=== PATIENT | female | born 1995 | race Caucasian/White ===

== ENCOUNTER 2021-11-30 16:35 | Emergency (ER) | payer OTHER, SELFPAY ==
[2021-11-30 16:42] VITALS: BP 111/69; PULSE 101; RESP 16; TEMP 37.1; O2SAT 98
--- NOTE | 2021-11-30 17:02 | ED.GENADUL_ITS ---
Discharge Plan Disposition Patient Disposition: HOME Condition: Improving Discharge Details Clinical Impression: Pneumonia, Sinusitis Primary Care Provider: Unknown,Unknown ED Provider: Kath Morgan Home Meds and New Rx's Prescriptions: New amoxicillin-pot clavulanate 875-125 mg tablet 1 tab PO BID 10 Days Qty: 20 0RF Discharge Instructions Instructions: Sinusitis (ED), Pneumonia (ED) Additional Instructions: Your chest x-ray appears consistent with a right-sided pneumonia. You will be notified if there are any additional findings from the radiologist once the xray report is complete. You also likely have a sinus infection. These can be viral which is treated with supportive care such as fluids, rest and [id number]-ejannvu cough and cold medication, but can also evolve into a bacterial infection which is treated with antibiotics. Drink plenty of fluids and get plenty of rest. You are being sent home with an albuterol inhaler to use as needed and directed for coughing, wheezing or shortness of breath. A prescription for antibiotics has been sent electronically to [facility] in [facility]. Follow-up with your primary care doctor in [place] in the next 1 to 2 weeks. If you decide to stay or move to the area, some local practices include [facility] internal medicine, [facility] and [facility]. Return to the emergency department with any worsening or new concerning symptoms such as worsening headache, neck pain, difficulty breathing. Stand Alone Forms: Work Release Discharge Data Discharge Date/Time-TO BE ENTERED AT DEPARTURE: 11/30/21 18:23 Discharge Physician: Kath Morgan Medical Decision Making 1650 -- 26-year-old female who is a daily tobacco smoker and occasional marijuana smoker presents for 1 week of nasal congestion, green nasal discharge, sore throat, ear pain, cough productive of green sputum, shortness of breath, right-sided headache and right-sided rib pain. Heart rate 101. Her oxygen saturation is 98% on room air. She has diminished breath sounds in the bases bilaterally but with crackles in the right lung base. She has right frontal sinus tenderness. Normal oropharynx. No wheezing noted. Differential diagnosis includes sinusitis, pneumonia, COVID or other respiratory viral illness. Will obtain a chest x-ray, COVID antigen test and give a DuMaxinebCriselda. 1750 --patient reassessed and she feels much better. COVID and flu antigen test negative. Chest x-ray reveals a right-sided pneumonia. Patient feels comfortable going home. Patient is visiting from [place]. We will send with albuterol inhaler and give dose of antibiotics now. On lung reassessment there is no wheezing noted so we will hold on steroids at this time. Prescription for antibiotics sent electronically to [facility] pharmacy. Advised to follow-up with the PCP in [place] within the next 1 to 2 weeks. Usual and customary return precautions given prior to discharge. Medical Records Medical records reviewed: Yes I reviewed the patient's medical records. Imaging Data Radiologic Study: Radiologist's impression: XR Chest Exam date and time: 11/30/2021 5:16 PM Age: 26 years old Clinical indication: Other: Cough, SOB, R/O acute disease TECHNIQUE: Imaging protocol: Radiologic exam of the chest. Views: 1 view. COMPARISON: CR XR PORTABLE CHEST AP 11/30/2021 5:06 PM FINDINGS: Lungs: Normal pulmonary expansion. Pulmonary vasculature grossly normal. Alveolar opacity in the right lung base suggesting right lower lobe pneumonia. Pleural spaces: No pleural effusion. No pneumothorax. Heart/Mediastinum: Heart size normal. No tracheal/mediastinal shift. Bones/joints: No acute osseous abnormalities are identified. Soft tissues: Nipple adornments removed. IMPRESSION: Right lower lobe airspace disease consistent with pneumonia.. Lab Data Lab results reviewed: Yes I reviewed the patient's lab results. HPI General Mode of arrival: ambulatory . Date/Time Provider Initiated Documentation: 11/30/21 16:49 . Limitations to Documentation: no limitations . Information obtained by: patient . HPI Narrative: Patient is a 26-year-old female who presents with 1 week of sore throat, ear pain, runny nose, nasal congestion, productive cough, shortness of breath now with right-sided headache and right-sided chest pain. Patient states she has had a max temperature of 99. She states she has been having green nasal mucus and green sputum. She states her right-sided chest hurts mainly with coughing. She has been taking Sudafed and ibuprofen. She states she has received 2 COVID vaccines but no boosters. Related Data Home Medications Medication Instructions Recorded Confirmed amoxicillin 875 mg-potassium 1 tab PO BID 10 days #20 tabs 11/30/21 clavulanate 125 mg tablet Previous Rx's Medication Instructions Recorded amoxicillin 875 mg-potassium 1 tab PO BID 10 days #20 tabs 11/30/21 clavulanate 125 mg tablet Allergies Allergy/AdvReac Type Severity Reaction Status Date / Time No Known Allergies Allergy Unverified 11/30/21 16:48 General Stated Complaint: GenMedical RICO: 3 Review of Systems All systems reviewed & are unremarkable except as noted in HPI and below Constitutional Constitutional: Reports as per HPI, Denies chills and Denies fever(s) Eyes Eyes: Denies blurry vision ENT Ears, Nose, Mouth, and Throat: Denies dizziness, Reports otalgia, Reports sore throat and Denies throat swelling Cardiovascular Cardiovascular: Denies chest pain and Reports dyspnea Respiratory Respiratory: Reports chest congestion, Reports cough and Reports dyspnea Gastrointestinal Gastrointestinal: Denies abdominal pain, Denies diarrhea and Denies vomiting Genitourinary Genitourinary: Denies hematuria and Denies dysuria Musculoskeletal Musculoskeletal: Denies back pain and Denies numbness Integumentary/Breasts Skin/Breast: Denies lesions and Denies rash Neurologic Neurologic: Denies dizziness, Denies localized weakness and Denies numbness Allergic/Immunologic Allergic/Immunologic: Denies throat swelling PFSH All Active Problems (Updated 11/30/21 @ 17:57 by Kath Morgan DO) Pneumonia (Acute) Sinusitis (Acute) Medical History (Updated 11/30/21 @ 17:57 by Kath Morgan DO) No significant past medical history Surgical History (Updated 11/30/21 @ 17:04 by Kath Morgan DO) H/O wisdom tooth extraction Social History Smoking/Tobacco Use Status: Current every day Tobacco Type: cigarettes Smoking risk assessment performed?: Yes Alcohol Intake: current Alcohol Intake frequency: a few times a month Alcohol type: beer, wine and hard liquor Drug use: Daily Substance use type: marijuana Do you feel safe at home: Yes Do you feel safe in your relationship?: Yes Exam Const General: cooperative, healthy appearing and no acute distress HENMT Head: normal to inspection Ears: hearing grossly normal bilaterally, external ears normal and TM's normal bilaterally Face and sinus: normal facial exam and sinus tenderness frontal (right) Mouth: oral mucosae normal Throat: posterior oropharynx normal Eyes General: appearance normal, both eyes and all related structures Pupils: PERRL EOM: EOM intact bilaterally Neck Neck: normal visual inspection and No submandibular swelling Lymphatic: no lymphadenopathy noted Chest Chest: normal inspection of the chest and no tenderness Resp Effort & Inspection: normal respiratory effort and able to speak in complete sentences Auscultation: crackles on the right at the base and diminished lung sounds bilaterally in the lower lung gregory Cardio Rate: regular rate Rhythm: regular rhythm GI Inspection: normal to inspection Palpation: soft, not firm, not rigid and nontender Auscultation: hypoactive bowel sounds Skin General skin exam: no rashes or lesions noted Neuro General: patient alert, patient awake and patient oriented x3 Cognition: normal cognition Speech: speech normal Motor: muscle tone normal throughout Sensory Exam: no sensory deficits noted Extrem General: normal to inspection, full ROM, capillary refill normal, no calf tenderness bilaterally and no edema Psych Appearance: grossly normal Mental Status: mental status grossly normal Speech and Movement: speech and movement normal Affect: normal affect Course Vital Signs Vital signs: Vital Signs Temperature 98.7 F 11/30/21 16:42 Pulse 101 H 11/30/21 16:42 Respiratory Rate 16 11/30/21 16:42 Blood Pressure 111/69 11/30/21 16:42 Pulse Oximetry 98 11/30/21 16:42 Temperature 98.7 F 11/30/21 16:42 Temperature Source Oral 11/30/21 16:42 Pulse 101 H 11/30/21 16:42 Respiratory Rate 16 11/30/21 16:42 Respiratory Effort 11/30/21 16:56 Respiratory Depth Normal 11/30/21 16:56 Respiratory Pattern Normal 11/30/21 16:56 Blood Pressure 111/69 11/30/21 16:42 Blood Pressure Position Sitting 11/30/21 16:42 Pulse Oximetry 98 11/30/21 16:42 Oxygen Delivery Method Room Air 11/30/21 16:42 Oxygen Flow Rate 0 11/30/21 16:42 Pain Level 5 11/30/21 16:42 PAWSS Have you Been Recently Intoxicated or Drunk Within the Last 30 days?: No Have you Ever Experienced Previous Episodes of Alcohol Withdrawal?: No Have you ever Experienced Withdrawal Seizures?: No Have you ever Experienced Delirium Tremens(DT)s?: No Have you ever undergone Alcohol Rehabilitation Treatment (i.e, inpt ot outpatient treatment programs)?: No Have you ever Experienced Blackouts?: No Have you ever Combined Alcohol with other Downers within the last 90 days?: No Have you ever Combined Alcohol with any other Substance of Abuse during the last 90 days?: No Positive Blood Alcohol level on Presentation? [PCS.BAL]: No Evidence of Increased Autonomic Activity (i.e. HR>120, tremor, sweating, agitation, nausea)?: No Result: 0
--- NOTE | 2021-11-30 17:15 | DI.RAD_ITS ---
Exam(s) XR PORTABLE CHEST AP EXAM: XR PORTABLE CHEST AP CLINICAL HISTORY: cough, r/o acute disease TECHNIQUE: COMPARISON: No exams were available for comparison FINDINGS: Heart is not enlarged. The there are patchy infiltrates in the right lung base consistent with acute pneumonitis period otherwise lungs are clear. No pneumothorax. No pleural effusion on this frontal film. IMPRESSION: The appearance is consistent with right basilar pneumonia. Appropriate follow-up films requested. RADIATION DOSE DELIVERED: Total DLP
[2021-11-30] MEDS: Ibuprofen 600 MG TAB PO (17:51)
[2021-11-30] MEDS: Albuterol/Ipratropium 3 ML UPD VIAL UPD (17:51)
--- NOTE | 2021-11-30 18:16 | DI.VRAD_ITS ---
PROCEDURE INFORMATION: Exam: XR Chest Exam date and time: 11/30/2021 5:16 PM Age: 26 years old Clinical indication: Other: Cough, SOB, R/O acute disease TECHNIQUE: Imaging protocol: Radiologic exam of the chest. Views: 1 view. COMPARISON: CR XR PORTABLE CHEST AP 11/30/2021 5:06 PM FINDINGS: Lungs: Normal pulmonary expansion. Pulmonary vasculature grossly normal. Alveolar opacity in the right lung base suggesting right lower lobe pneumonia. Pleural spaces: No pleural effusion. No pneumothorax. Heart/Mediastinum: Heart size normal. No tracheal/mediastinal shift. Bones/joints: No acute osseous abnormalities are identified. Soft tissues: Nipple adornments removed. IMPRESSION: Right lower lobe airspace disease consistent with pneumonia.. Dictated and Authenticated by: Abilio Childs MD. Ordering:JOANA Stockton MD
[2021-11-30] MEDS: Albuterol HFA 8 GM 60 PUFF INH IH (18:22)
[2021-11-30] MEDS: Inhaler, Assist Device 1 EACH MC (18:23)
[2021-11-30] MEDS: Amox. 875/Clav. 125, 2 TABS/BTL 1 TAB PO (18:23)
== END 2021-11-30 18:23 | disposition home or self-care (01) ==
PROVIDERS: Emergency Provider Physician Assistant
DX: J18.9 Pneumonia, unspecified organism (principal); J32.9 Chronic sinusitis, unspecified; F17.210 Nicotine dependence, cigarettes, uncomplicated; Z20.822 Contact with and (suspected) exposure to COVID-19
CPT/HCPCS: 81025; 99283; 71045; 99284; J7620

== ENCOUNTER 2022-05-17 15:02 | Outpatient (REF) | payer MEDICAID, SELFPAY ==
[2022-05-19 13:08] LABS: Chlamydia Result Negative (Negative); GC Result Negative (Negative)
== END 2022-05-17 15:03 | disposition home or self-care (01) ==
LOC: LBN 15:02
PROVIDERS: Visit Provider Nurse Practitioner Women's Health
DX: Z11.3 Encounter for screening for infections with a predominantly sexual mode of transmission (principal)
CPT/HCPCS: 87491; 87591

== ENCOUNTER 2022-07-06 21:50 | Emergency (ER) | payer MEDICAID, SELFPAY ==
[2022-07-06] VITALS (26 sets, daily range): BP systolic 72–131; BP diastolic 42–88; PULSE 45–158; RESP 0–32; O2SAT 99–100
[2022-07-06] MEDS: Atropine 1 MG/10 ML SYRINGE IVP (21:50)
[2022-07-06] MEDS: Rocuronium 50 MG/5 ML SYR 100 MG IVP ×2 (21:55→23:34)
[2022-07-06] MEDS: Etomidate 20 MG/10 ML VIAL IVP (21:55)
[2022-07-06] MEDS: Normal Saline 1,000 ML 1000 ML IV (22:00)
[2022-07-06] MEDS: PROPOFOL 1,000 MG/100 ML BTL 7.5 MG IV (22:00)
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
[2022-07-06 22:08] LABS: Abs Immature Grans 0.09 10^3/uL (0.0-0.06); Absolute Basophil Count 0.03 10^3/uL (0.0-0.2); Absolute Eosinophil Count 0.15 10^3/uL (0.0-0.7); Absolute Lymphocyte Count 3.91 10^3/uL (1.2-3.4); Absolute Monocyte Count 0.64 10^3/uL (0.1-0.8); Basophils % 0.2; HGB 11.9 g/dL (11.2-15.7); Immature Grans % 0.6; Lymphocytes % 25.5; MCH 31.7 pg (27.0-33.0); MCHC 33.1 % (32.0-36.0); MCV 96 fL (80-95); MPV 10.2 fL (8.0-11.0); Monocytes % 4.2; Neutrophils % 68.5; Platelet Count 236 10^3/uL (130-400); RBC 3.75 10^6/uL (3.93-5.22); RDW-SD 45.9 fL; WBC 15.33 10^3/uL (4.4-10.8)
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
[2022-07-06 22:25] LABS: PTT Activated 20.1 sec (21.5-31.9); Prothrombin Time 10.6 sec (9.3-11.0)
[2022-07-06 22:29] LABS: ALT 25 U/L (14-59); AST 38 U/L (15-37); Albumin 3.4 g/dL (3.4-5.0); Alkaline Phosphatase 51 U/L (46-116); Anion Gap 5.3 mmol/L (3-11); BUN 15 mg/dL (7-18); Bilirubin, Total 0.3 mg/dL (0.2-1.0); CO2 28.7 mmol/L (21.0-32.0); CREATININE 0.8 mg/dL (0.55-1.02); Calcium 8.4 mg/dL (8.5-10.1); Chloride 108 mmol/L (98-107); Estimated GFR 107.44 (mL/min/1.73m2); Glucose 168 mg/dL (74-106); Magnesium 1.4 mg/dL (1.8-2.4); Potassium 3.7 mmol/L (3.5-5.1); Sodium 142 mmol/L (136-145); Total Protein 6.1 g/dL (6.4-8.2)
[2022-07-06] MEDS: Omnipaque 350 MG/ML 100 ML BTL IJ (22:31)
[2022-07-06] MEDS: Normal Saline - Diluent 50 ML VIAL IJ (22:31)
[2022-07-06] MEDS: Normal Saline Flush 10 ML SYR IVP (22:32)
[2022-07-06 22:33] LABS: Troponin I < 50 ng/L (<or=60)
[2022-07-06] MEDS: Tranexamic Acid 1,000 MG/10 ML VIAL 1000 MG IVP (22:39)
[2022-07-06] MEDS: ceFAZolin 2,000 MG in Normal Saline 100 ML 200 MG IVPB (22:45)
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
[2022-07-06 22:50] LABS: ETHANOL BLOOD 4.7 mg/dL (<10)
[2022-07-06 22:53] LABS: HCG Quant, Pregnancy < 1 mIU/mL (1-3)
[2022-07-06] MEDS: Propofol 200 MG/20 ML VIAL 20 MG IVP (22:55)
[2022-07-06] MEDS: levETIRAcetam 500 MG/5 ML VIAL (22:55)
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
[2022-07-06] MEDS: Lactated Ringers 1,000 ML 1000 ML IV (23:12)
[2022-07-06] MEDS: SODIUM CHLORIDE 3% 500 ML 30 ML IV (23:14)
[2022-07-06] MEDS: fentaNYL 1,000 MCG in Normal Saline 80 ML 10 MCG IV (23:35)
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
[2022-07-06 23:40] LABS: Bilirubin Negative (Negative); Blood Small (Negative); Clarity Sl Cloudy (Clear); Glucose Negative (Negative); Ketones Negative (Negative); Leukocyte Esterase Trace (Negative); Nitrite Negative (Negative); Urobilinogen 0.2 mg/dL (Up to 0.2)
[2022-07-06 23:43] LABS: Bacteria Few HPF (Negative); C & S Indicated? No/Sq. Contamination; Casts Negative LPF (Negative); Crystals Negative HPF (Negative); Epithelial Cells Many HPF (Negative); Mucus Negative (Negative)
--- NOTE | 2022-07-07 00:14 | NUR.NOTE ---
Nursing Note:[address], increased bleeding noted from head wound and nares; 222, 1st unit blood [id number], 2235 Dr. Lai at bedside to place 7.0fr triple lumen central line in left groin without difficulty; wound care to head provided. severe deformity and bleeding controlled. 2240 TXA administered via central line; patient starting to arouse and move; nonvoilent soft wrist restraints applied for patient/tube safety. propofol titrated up with additional push of 20 mg given per Ming cabrera; kereid initated; 2310 16 fr indwelling urinary catheter inserted and urine obtained and sent. 2320; EMS present - report given, pt transferred [facility] and patient departed with 1 EMT, 1 Hydrology Teacher, 1 RN and 1 RT
[2022-07-07 00:31] LABS: *AMPHETAMINES SCREEN URINE Negative (Negative); *BARBITURATES SCREEN URINE Negative (Negative); *BENZODIAZEPINES SCREEN URINE Negative (Negative); Cannabinoids THC Positive (Negative); Cocaine Screen,Urine Negative (Negative); METHADONE URINE SCREEN Negative (Negative); OPIATES URINE SCREEN Negative (Negative)
[2022-07-07 00:33] LABS: Tricyclic Antidepressants Negative (Negative)
--- NOTE | 2022-07-07 00:43 | NUR.NOTE ---
Nursing Note: 3 units emergent blood infused during patient stay - unable to obtain emergent blood transfusion record to document. First unit [id number] initiated at 2225; [id number] initiated at 2254; 3rd unit initiated at 2320
[2022-07-07 01:30] VITALS: RESP 10; RESP 15; O2SAT 99
== END 2022-07-06 23:59 | disposition short-term general hospital (02) ==
PROVIDERS: Physician Assistant; Emergency Provider Student in an Organized Health Care Education/Training Program
DX: S02.413A LeFort III fracture, initial encounter for closed fracture (principal); S12.600A Unspecified displaced fracture of seventh cervical vertebra, initial encounter for closed fracture; S22.43XA Multiple fractures of ribs, bilateral, initial encounter for closed fracture; V89.2XXA Person injured in unspecified motor-vehicle accident, traffic, initial encounter; S01.01XA Laceration without foreign body of scalp, initial encounter
CPT/HCPCS: 31500; 36430; 36556; 74177; 76937; 80053; 80307; 81025; 82805; 86850; 86900; 86901; 86920; 90471; 96365; 96367; 96375; 99291; 99292; 70450; 70486; 71260; 72125; 80320; 81003; 81015; 83735; 84484; 84702; 85025; 85610; 85730; J0690; J1953; J2704; J3010; J3490; P9016

== ENCOUNTER 2023-11-07 12:01 | Outpatient (REF) | payer MEDICAID, SELFPAY ==
--- NOTE | 2023-11-07 11:10 | PAPFT_PTH ---
PATIENT: Indira Bahena LOC: [facility] U#:[id number] AGE/SX: 28/F ROOM: RE11/07/[address]: Migdalia Shore NP : 1995 BED: DIS: 11/07/2023 SPEC #: [id number] RECD: 11/07/23 13:01 STATUS: DELIA SHIRLEY #: [id number] ESTEBAN: 11/07/23 11:[address]: Migdalia Shore NP DEPT: [facility] Cytology RECD BY: Rachelle Ernst ENTERED: 11/07/23 13:02 SP TYPE: PAPFT JOAO DR: Unknown,Unknown Tissues: 1 - CX/ENDOCX FOR PAP SMEARS Procedures: PAP THIN PREP/[facility] Screening Comments: [id number]
== END 2023-11-07 12:02 | disposition home or self-care (01) ==
LOC: LBN 12:01
PROVIDERS: Visit Provider Nurse Practitioner Women's Health
DX: Z01.419 Encounter for gynecological examination (general) (routine) without abnormal findings (principal); Z12.4 Encounter for screening for malignant neoplasm of cervix
CPT/HCPCS: 88142

== ENCOUNTER 2024-02-10 08:31 | Emergency (ER) | payer MEDICAID, SELFPAY ==
[2024-02-10 08:54] VITALS: BP 103/50; PULSE 68; RESP 16; TEMP 36.6; O2SAT 98
[2024-02-10 08:58] VITALS: BP 103/50; PULSE 68; RESP 16; TEMP 36.6; O2SAT 98
--- NOTE | 2024-02-10 09:45 | DI.CT_ITS ---
Exam(s) CT BRAIN NECK CTA EXAM: CT BRAIN NECK CTA CLINICAL HISTORY: headache, prior tbi. TECHNIQUE: Imaging Protocol: Axial CT angiography was performed with multi-slice acquisition and mu lti-planar and MIP reconstructions. CONTRAST MATERIAL: Intravenous: Omnipaque 350 Contrast volume:70 ml COMPARISON: CT CT HEAD CERV SPINE FACIAL WO from 07/06/2022 FINDINGS: CT Head W/O and W contrast: The exam is limited by motion, particularly on the noncontrast images.. Ventricles and Extra axial spaces: Normal in size and morphology for the patient's age. Hemorrhage: None. Cerebral parenchyma: No evidence of acute infarct or mass. Midline shift: None. Brainstem/Cerebellum: No acute findings.. Calvarium: Normal. Visualized Paranasal sinuses/Mastoids: Clear. Old facial fractures. Soft Tissues: Unremarkable. Enhancement: Normal. CTA Brain W: Internal Carotid Arteries: Petrous: Normal. Cavernous: Normal. Cerebral: Normal. Middle Cerebral Arteries: Right: No aneurysm, occlusion or significant stenosis. Left: No aneurysm, occlusion or significant stenosis. Anterior Cerebral Arteries: Right: No aneurysm, occlusion or significant stenosis. Left: No aneurysm, occlusion or significant stenosis. Posterior cerebral Arteries: Right: No aneurysm, occlusion or significant stenosis. Left: No aneurysm, occlusion or significant stenosis. Vertebral Arteries: Right: No aneurysm, occlusion or significant stenosis. Left: No aneurysm, occlusion or significant stenosis. Basilar Artery: No aneurysm, occlusion or significant stenosis. CTA Neck W: Common Carotid: Right: No dissection, occlusion or significant stenosis. Left: No dissection, occlusion or significant stenosis. External Carotid: Right: No dissection, occlusion or significant stenosis. Left: No dissection, occlusion or significant stenosis. Internal Carotid: Right: No dissection, occlusion or significant stenosis. Left: No dissection, occlusion or significant stenosis. Vertebral Artery: Right: No dissection, occlusion or significant stenosis. Left: No dissection, occlusion or significant stenosis. Lung Apices: No acute findings. Bones: No acute abnormality. Healing without significant residual deformity of the previously noted C 7 fractures. Soft Tissues: Normal. IMPRESSION: 1. CTA brain: Normal CTA examination of the [place]. 2. Head CT: Unremarkable CT Head. 3. CTA neck: Normal CTA examination of the neck. RADIATION DOSE DELIVERED: Total DLP DATA REPOSITORY: All CT scans at this facility are submitted to the National Radiology Data Registry (NRDR) Dose Index Registry (DIR) with the [employer] ([employer]). RADIATION OPTIMIZATION: All CT scans at this facility use at least one of these dose optimization te chniques: automated exposure control; mA and/or kV adjustment per patient size (includes targeted exa ms where dose is matched to clinical indication); or iterative reconstruction.
[2024-02-10 10:26] LABS: Abs Immature Grans 0.01 10^3/uL (0.0-0.06); Absolute Basophil Count 0.02 10^3/uL (0.0-0.2); Absolute Eosinophil Count 0.16 10^3/uL (0.0-0.7); Absolute Lymphocyte Count 2.13 10^3/uL (1.2-3.4); Absolute Monocyte Count 0.58 10^3/uL (0.1-0.8); Absolute Neutrophil Count 2.45 10^3/uL (1.2-6.7); Basophils % 0.4 %; HCT 41.8 % (36.0-46.0); Immature Grans % 0.2 %; Lymphocytes % 39.8 %; MCHC 33.5 % (32.0-36.0); MCV 93 fL (80-95); MPV 10.3 fL (8.0-11.0); Monocytes % 10.8 %; Neutrophils % 45.8 %; Platelet Count 153 10^3/uL (130-400); RBC 4.51 10^6/uL (3.93-5.22); RDW 12.9 % (11.7-14.6); WBC 5.35 10^3/uL (4.4-10.8)
[2024-02-10] MEDS: Prochlorperazine 10 MG/2 ML VIAL IVP (10:26)
[2024-02-10] MEDS: diphenhydrAMINE 50 MG/ML VIAL 25 MG IVP (10:26)
[2024-02-10] MEDS: Acetaminophen 325 MG TAB 650 MG PO (10:26)
[2024-02-10] MEDS: Normal Saline - Diluent 50 ML VIAL IJ (10:39)
[2024-02-10] MEDS: Omnipaque 350 MG/ML 100 ML BTL 70 ML IJ (10:40)
[2024-02-10 10:41] LABS: ALT 24 U/L (14-59); AST 29 U/L (15-37); Albumin 3.8 g/dL (3.4-5.0); Alkaline Phosphatase 66 U/L (46-116); Anion Gap 8.2 mmol/L (3-11); BUN 13 mg/dL (7-18); Bilirubin, Total 0.22 mg/dL (0.2-1.0); CO2 26.8 mmol/L (21.0-32.0); CREATININE 0.8 mg/dL (0.55-1.02); Calcium 9.2 mg/dL (8.5-10.1); Chloride 106 mmol/L (98-107); Glucose 105 mg/dL (74-106); Potassium 4.3 mmol/L (3.5-5.1); Sodium 141 mmol/L (136-145); Total Protein 7.7 g/dL (6.4-8.2)
[2024-02-10 11:35] VITALS: BP 108/73; PULSE 59; RESP 15; O2SAT 97
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
== END 2024-02-10 12:20 | disposition home or self-care (01) ==
PROVIDERS: Emergency Provider Student in an Organized Health Care Education/Training Program
DX: R51.9 Headache, unspecified (principal); R11.0 Nausea; R19.7 Diarrhea, unspecified; F17.210 Nicotine dependence, cigarettes, uncomplicated; Z87.820 Personal history of traumatic brain injury
CPT/HCPCS: 36415; 70496; 70498; 80053; 81025; 96374; 96375; 99285; 85025; J0780; J1200; J3490

== ENCOUNTER 2024-11-10 07:25 | Outpatient (CLI) | payer MEDICAID, SELFPAY ==
[2024-11-10 23:27] LABS: HIV-1/2 Ag & Ab Screen Negative (Negative)
[2024-11-12 15:42] LABS: Syphilis IgG w/Reflex Nonreactive (Nonreactive)
== END 2024-11-10 07:26 | disposition home or self-care (01) ==
LOC: LBO 11-11 07:26
PROVIDERS: PCP Family Medicine; Visit Provider Nurse Practitioner Women's Health
DX: Z11.3 Encounter for screening for infections with a predominantly sexual mode of transmission (principal); Z20.5 Contact with and (suspected) exposure to viral hepatitis
CPT/HCPCS: 36415; 87389; 87522; 86780

== ENCOUNTER 2024-11-10 11:36 | Outpatient (REF) | payer MEDICAID, SELFPAY ==
[2024-11-11 11:34] LABS: Chlamydia Result Negative (Negative); GC Result Negative (Negative)
== END 2024-11-10 11:37 | disposition home or self-care (01) ==
LOC: LBN 11:36
PROVIDERS: PCP Family Medicine; Visit Provider Nurse Practitioner Women's Health
DX: Z11.3 Encounter for screening for infections with a predominantly sexual mode of transmission (principal)
CPT/HCPCS: 87491; 87591